=== PATIENT | female | born 1970 | race Caucasian/White ===

== ENCOUNTER 2021-11-17 11:37 | Outpatient (CLI) | payer SELFPAY ==
[2021-11-17 13:38] LABS: Anion Gap 15 mmol/L (10-20); BUN (Urea Nitrogen) 5 mg/dL (9.8-20.1); Calc. Creatinine Clearance 0 mL/min (70-130); Calcium 9.3 mg/dL (7.8-10.44); Carbon Dioxide 26 mmol/L (22-29); Chloride 104 mmol/L (98-107); Glucose 83 mg/dL (70-105); Potassium 4.4 mmol/L (3.5-5.1); Sodium 141 mmol/L (136-145)
[2021-11-17 13:44] LABS: #Basophils 0.1 10x3/uL (0.0-0.2); #Eosinphils 0.2 10x3/uL (0.0-0.5); #Monocytes 0.6 10x3/uL (0.0-1.1); #Neutrophils 5.1 10x3/uL (1.5-8.4); %Basophils 0.8 % (0.0-2.0); %Lymphocytes 32.3 % (18.0-47.0); %Monocytes 6.9 % (0.0-10.0); %Neutrophils 57.8 % (40.0-75.0); Hemoglobin 10.3 g/dL (12.0-15.5); Mean Corpuscular HGB CONC 29.4 g/dL (32.0-36.0); Mean Corpuscular Hemoglobin 22.4 pg (27.0-33.0); Mean Corpuscular Volume 76.1 fl (81.6-98.3); Mean Platelet Volume 9.1 fl (7.4-10.4); Platelet Count 432 10x3/uL (150-450); RBC Distribution Width 19.8 % (11.5-14.5); White Blood Cell (WBC) Count 8.9 10x3/uL (3.5-10.5)
[2021-11-17 14:20] LABS: Anisocytosis SLIGHT = 6-15 cells (100X) (0-5/hpf); Hypochromia SLIGHT = 6-15 cells (100X) (0-5/hpf); Microcytosis SLIGHT = 6-15 cells (100X) (0-5/hpf)
[2021-11-17 14:21] LABS: Platelet Morphology Comment Appears Adequate
== END 2021-11-17 11:38 | disposition home or self-care (01) ==
LOC: LABBT 11:37
PROVIDERS: ATTEND Specialist
DX: Z01.818 Encounter for other preprocedural examination (principal); C50.512 Malignant neoplasm of lower-outer quadrant of left female breast; Z17.0 Estrogen receptor positive status [ER+]; Z20.822 Contact with and (suspected) exposure to COVID-19
CPT/HCPCS: 80048; 85025; 93005; 93010; U0003; U0005

== ENCOUNTER 2021-11-20 07:21 | Day surgery (SDC) | payer MEDICAID, OTHER ==
[2021-11-18 14:48] VITALS: BMI 30.2
[2021-11-20] MEDS ORDERED: Acetaminophen 500 MG TAB ONE (09:13)
[2021-11-20] MEDS ORDERED: Ketorolac Tromethamine 30 MG/ML VIAL ONE (09:13)
[2021-11-20] MEDS ORDERED: Midazolam HCl 2 mg/2 ml Vial ONE ×2 (11:17→13:24)
[2021-11-20] MEDS ORDERED: fentaNYL Citrate/PF 100 MCG/2 ML SYRINGE ONE (12:56)
[2021-11-20] MEDS ORDERED: Isosulfan Blue 50 MG/5 ML VIAL ONE (12:58)
[2021-11-20] MEDS ORDERED: Bupivacaine 0.25% HCL 30 ML VIAL ONE (12:58)
[2021-11-20] MEDS ORDERED: Lidocaine 1% (PF) 30 ML VIAL ONE (12:59)
[2021-11-20] MEDS ORDERED: CEFAZOLIN 2 GM VIAL ONE (13:16)
[2021-11-20] MEDS ORDERED: Sodium Chloride 0.9% 100 ML ONE (13:16)
[2021-11-20] MEDS ORDERED: Lidocaine 1% PF 5 ML VIAL ONE (13:24)
[2021-11-20] MEDS ORDERED: Ondansetron PF 4 MG/2 ML Vial ONE ×2 (13:24→16:21)
[2021-11-20] MEDS ORDERED: Dexamethasone 20 MG/5 ML VIAL ONE (13:24)
[2021-11-20] MEDS ORDERED: PROPOFOL 200 MG/20 ML VIAL ONE (13:24)
[2021-11-20] MEDS ORDERED: PHENYLEPHRINE-NS 100 MCG/ML 10 ML SYRINGE ONE (13:24)
[2021-11-20] MEDS ORDERED: Lidocaine 1% w/Epinephrine 1:100K 20 ML VIAL ONE (13:33)
[2021-11-20] MEDS ORDERED: PROPOFOL 20 ML ONE (14:36)
[2021-11-20] MEDS ORDERED: HYDROcodone/Acetaminophen 5/325 mg Tablet ONE (17:22)
== END 2021-11-20 18:13 | disposition home or self-care (01) ==
LOC: SDC 07:21
PROVIDERS: ATTEND Specialist
PROC: 0HBU0ZZ Excision of Left Breast, Open Approach (ICD-10-PCS; principal; 2021-11-20)
PROC: 07B60ZX Excision of Left Axillary Lymphatic, Open Approach, Diagnostic (ICD-10-PCS; principal; 2021-11-20)
PROC: 0HX5XZZ Transfer Chest Skin, External Approach (ICD-10-PCS; principal; 2021-11-20)
DX: C50.512 Malignant neoplasm of lower-outer quadrant of left female breast (principal); C77.3 Secondary and unspecified malignant neoplasm of axilla and upper limb lymph nodes; N60.22 Fibroadenosis of left breast; D24.2 Benign neoplasm of left breast; Z17.0 Estrogen receptor positive status [ER+]; Z88.5 Allergy status to narcotic agent
CPT/HCPCS: 76098; 78195; 88307; 88342; A9541; C1776; J0690; J1100; J1885; J2001; J2250; J2405; J2704; J3490; Q9968; S0020

== ENCOUNTER 2022-01-08 12:27 | Outpatient (CLI) | payer OTHER ==
[2022-01-08 13:38] LABS: Hemoglobin 9.4 g/dL (12.0-15.5); Mean Corpuscular HGB CONC 30.2 g/dL (32.0-36.0); Mean Corpuscular Hemoglobin 23.4 pg (27.0-33.0); Mean Corpuscular Volume 77.6 fl (81.6-98.3); Mean Platelet Volume 9.6 fl (7.4-10.4); Platelet Count 239 10x3/uL (150-450); Red Blood Cell (RBC) Count 4.01 10x6/uL (3.90-5.03); White Blood Cell (WBC) Count 9.2 10x3/uL (3.5-10.5)
[2022-01-08 13:51] LABS: Anion Gap 12 mmol/L (10-20); BUN (Urea Nitrogen) 8 mg/dL (9.8-20.1); Calc. Creatinine Clearance 0 mL/min (70-130); Calcium 8.8 mg/dL (7.8-10.44); Carbon Dioxide 26 mmol/L (22-29); Chloride 106 mmol/L (98-107); Estimated GFR 103; Glucose 95 mg/dL (70-105); Potassium 4.4 mmol/L (3.5-5.1); Sodium 140 mmol/L (136-145)
== END 2022-01-08 12:28 | disposition home or self-care (01) ==
LOC: LABBT 12:27
PROVIDERS: ATTEND Specialist
DX: Z01.812 Encounter for preprocedural laboratory examination (principal)
CPT/HCPCS: 80048; 85027

== ENCOUNTER 2022-01-20 05:46 | Day surgery (SDC) | payer OTHER ==
[2022-01-09 13:51] VITALS: BMI 30.2
[2022-01-20] MEDS ORDERED: Ketorolac Tromethamine 30 MG/ML VIAL ONE (06:16)
[2022-01-20] MEDS ORDERED: Acetaminophen 500 MG TAB ONE (06:16)
[2022-01-20] MEDS ORDERED: Bupivacaine/Epinephrine 0.25% 30 ML VIAL ONE (06:34)
[2022-01-20] MEDS ORDERED: Lidocaine 2% PF 5 ML VIAL ONE (06:50)
[2022-01-20] MEDS ORDERED: Propofol 500 MG/50 ML VIAL ONE (06:54)
[2022-01-20] MEDS ORDERED: fentaNYL Citrate/PF 100 MCG/2 ML SYRINGE ONE (06:54)
[2022-01-20] MEDS ORDERED: Midazolam HCl 2 mg/2 ml Vial ONE (07:19)
[2022-01-20] MEDS ORDERED: Sodium Chloride 0.9% 100 ML ONE (07:23)
[2022-01-20] MEDS ORDERED: CEFAZOLIN 2 GM VIAL ONE (07:23)
[2022-01-20] MEDS ORDERED: Lidocaine 1% PF 5 ML VIAL ONE (07:47)
[2022-01-20] MEDS ORDERED: PROPOFOL 200 MG/20 ML VIAL ONE (07:47)
== END 2022-01-20 09:40 | disposition home or self-care (01) ==
LOC: SDC 05:46
PROVIDERS: ATTEND Specialist
PROC: 0JH60WZ Insertion of Totally Implantable Vascular Access Device into Chest Subcutaneous Tissue and Fascia, Open Approach (ICD-10-PCS; principal; 2022-01-20)
PROC: 02HV33Z Insertion of Infusion Device into Superior Vena Cava, Percutaneous Approach (ICD-10-PCS; principal; 2022-01-20)
DX: C50.512 Malignant neoplasm of lower-outer quadrant of left female breast (principal); Z79.52 Long term (current) use of systemic steroids; Z88.5 Allergy status to narcotic agent
CPT/HCPCS: 71045; C1788; J0690; J1642; J1885; J2001; J2250; J2704; J3490

== ENCOUNTER 2022-11-23 13:04 | Outpatient (CLI) | payer OTHER | END 2022-11-23 13:05 | disposition home or self-care (01) | LOC: BICMAMMO 13:04 | PROVIDERS: ATTEND Specialist | DX: C50.512 Malignant neoplasm of lower-outer quadrant of left female breast (principal) | CPT/HCPCS: 77066; G0279 ==

== ENCOUNTER 2023-10-27 08:48 | Outpatient (CLI) | payer OTHER | END 2023-10-27 08:49 | disposition home or self-care (01) | LOC: BICMAMMO 08:48 | PROVIDERS: ATTEND Internal Medicine Hematology & Oncology | DX: Z13.820 Encounter for screening for osteoporosis (principal); C50.112 Malignant neoplasm of central portion of left female breast; M85.89 Other specified disorders of bone density and structure, multiple sites | CPT/HCPCS: 77080 ==

== ENCOUNTER 2023-11-30 08:39 | Outpatient (CLI) | payer OTHER | END 2023-11-30 08:40 | disposition home or self-care (01) | LOC: BICMAMMO 08:39 | PROVIDERS: ATTEND Internal Medicine Hematology & Oncology | DX: Z08 Encounter for follow-up examination after completed treatment for malignant neoplasm (principal); Z85.3 Personal history of malignant neoplasm of breast; N64.89 Other specified disorders of breast | CPT/HCPCS: 77066; G0279 ==

== ENCOUNTER → 2023-12-03 | Day surgery (SDC) | payer OTHER | LOC: MAMMO 06:59 | PROVIDERS: ATTEND Internal Medicine Hematology & Oncology | PROC: 0HBT3ZX Excision of Right Breast, Percutaneous Approach, Diagnostic (ICD-10-PCS; principal; 2023-12-03) | DX: R92.8 Other abnormal and inconclusive findings on diagnostic imaging of breast (principal); N64.89 Other specified disorders of breast | CPT/HCPCS: 19081; A4648 ==